=== PATIENT | female | born 1945 ===

== ENCOUNTER 2020-09-23 12:51 | Outpatient (CLI) | payer OTHER | END 2020-09-23 12:52 | disposition home or self-care (01) | LOC: NUCLEAR 12:51 | PROVIDERS: ATTEND Internal Medicine Endocrinology, Diabetes & Metabolism | DX: M81.0 Age-related osteoporosis without current pathological fracture (principal); E66.2 Morbid (severe) obesity with alveolar hypoventilation; E04.9 Nontoxic goiter, unspecified; E78.2 Mixed hyperlipidemia ==